=== PATIENT | male | born 1995 | race Caucasian/White ===

== ENCOUNTER 2018-02-21 20:32 | Emergency (ER) | payer OTHER ==
[~2018-02-21] VITALS: Ht 165.1 cm; Wt 75.3 kg
[~2018-02-21 20:32] MED LIST: AMOX1TAB12 PO; AMOX1TAB64 PO; HYDR-3240 PO
--- NOTE | 2018-02-21 20:51 | NUR ---
PT TO ED WITH N/V/D AND CRAMPING ABD PAIN X1 DAY. PT STATES SICKNESS MAY BE FROM EATING [employer] AT [facility]. CONNECTED TO BP CUFF AND PULSE OX. VSS. PA TO BEDSIDE FOR ASSESSMENT. AWAITING ORDERS. CALL LIGHT WITHIN REACH.
[2018-02-21 20:53] VITALS: BP 122/61
[2018-02-21] MEDS ORDERED: MAALOX/HYOSCYAMINE/LIDOCAINE 45 ML BTL PO ONE (21:00)
[2018-02-21] MEDS ORDERED: ONDANSETRON ODT 4 MG PO ONE (21:00)
[2018-02-21] MEDS ORDERED: ONDANSETRON ODT 4 MG ONE (21:01)
[2018-02-21] MEDS ORDERED: MAALOX/HYOSCYAMINE/LIDOCAINE 45 ML BTL ONE (21:02)
[2018-02-21 21:11] LABS: BASOPHILS # (AUTO) 0.08 x10^3/uL (0-0.3); BASOPHILS % (AUTO) 1 % (0-1); EOSINOPHILS # (AUTO) 0.29 x10^3/uL (0-0.8); EOSINOPHILS % (AUTO) 4 % (1-7); LYMPHOCYTES # (AUTO) 1.85 x10^3/uL (1-6.1); LYMPHOCYTES % (AUTO) 22 % (22-44); MD NO; MEAN CORPUSCULAR HEMOGLOBIN 31.1 pg (27.5-34.5); MEAN CORPUSCULAR HGB CONC 33.9 g/dL (33.2-36.2); MEAN CORPUSCULAR VOLUME 91.9 fL (81-97); MEAN PLATELET VOLUME 7.8 fL (7.4-10.4); MONOCYTES # (AUTO) 1.13 x10^3/uL (0-1.4); MONOCYTES % (AUTO) 14 % (2-9); NEUTROPHILS # (AUTO) 4.91 x10^3/uL (1.8-8.0); NEUTROPHILS % (AUTO) 60 % (42-75); PLATELET COUNT 241 x10^3/uL (130-400); RED BLOOD COUNT 4.84 x10^6/uL (4.38-5.82); RED CELL DISTRIBUTION WIDTH 12.7 % (9.4-14.8)
--- NOTE | 2018-02-21 21:17 | NUR ---
PT MEDICATED PER MAR. RESTING IN BED WITH FRIEND AT BEDSIDE. VSS. AWAITING LABS AT THIS TIME.
[2018-02-21 21:20] LABS: ALANINE AMINOTRANSFERASE 21 U/L (12-78); ALBUMIN 3.4 g/dL (3.4-5.0); ANION GAP 5 mmol/L (5-15); CALCIUM 7.9 mg/dL (8.5-10.1); CHLORIDE 107 mmol/L (98-107)
[2018-02-21 21:22] LABS: ALKALINE PHOSPHATASE 70 U/L (45-117); BILIRUBIN,TOTAL 0.2 mg/dL (0.2-1.0); TOTAL PROTEIN 6.6 g/dL (6.4-8.2)
--- NOTE | 2018-02-21 22:01 | NUR ---
MD TO BEDSIDE TO UPDATE PT AND FAMILY ON POC. PT TO BE DCd
== END 2018-02-21 22:21 | disposition home or self-care (01) ==
LOC: ED 22:09
DX: K29.00 Acute gastritis without bleeding (principal)
CPT/HCPCS: 36415; 76700; 80053; 83690; 85025; 86677; 99284; Q0162